=== PATIENT | female | born 1950 | race Hispanic/Latino ===

== ENCOUNTER 2017-06-09 05:45 | Day surgery (SDC) | payer MEDICARE, OTHER ==
[2017-06-09] MEDS ORDERED: PEPCID PO NR (06:00)
[2017-06-09] MEDS ORDERED: NACL 0.9% 1000 ML 1,000 ML IV SCH (06:00)
[2017-06-09] MEDS ORDERED: NACL BACTERIOSTATIC INFILTRATI ONE (06:47)
[2017-06-09] MEDS ORDERED: CLEOCIN 900 MG/50 mL 900 MG/50 ML BAG IV ONE (06:57)
--- NOTE | 2017-06-09 07:12 | Anesthesia Consultation ---
Anesthesia Consult and Med Hx Date of service: 06/09/17 - Airway Anesthetic Teeth Evaluation: Good ROM Head & Neck: Adequate Mental/Hyoid Distance: Adequate Mallampati Class: Class I Intubation Access Assessment: Good - Pulmonary Exam CTA: Yes - Cardiac Exam Cardiac Exam: RRR - Pre-Operative Health Status ASA Pre-Surgery Classification: ASA3 Proposed Anesthetic Plan: General - Pulmonary Hx Smoking: Yes (STOPPED X 10 YRS , 1 1/2PPD X 30 YRS) COPD: Yes (INHALERS PRN) Hx Sleep Apnea: No (DONI PRESCREEN LOW RISK.) - Cardiovascular System Hx Hypertension: Yes - Endocrine Hx Non-Insulin Dependent Diabetes: Yes - Hematic Hx Anemia: Yes (NOT RECENT) - Other Systems Hx Cancer: No
[2017-06-09] MEDS ORDERED: DILAUDID IV PRN (07:13)
--- NOTE | 2017-06-09 07:13 | Anesthesia Day of Surgery ---
Anesthesia Day of Surgery - Day of Surgery Patient Examined: Yes Patient H&P Reviewed: Yes Patient is NPO: Yes
[2017-06-09] MEDS ORDERED: XYLOCAINE MPF 2% ONE (07:17)
[2017-06-09] MEDS ORDERED: DIPRIVAN 10 MG/ML IV ONE (07:18)
[2017-06-09] MEDS ORDERED: ZOFRAN IV PRN (07:30)
[2017-06-09] MEDS ORDERED: PERCOCET 5/325 PO PRN (08:00)
[2017-06-09] MEDS ORDERED: DECADRON ONE (08:46)
[2017-06-09] MEDS ORDERED: ZOFRAN ONE (08:46)
[2017-06-09] MEDS ORDERED: MARCAINE 0.25% INFILTRATI ONE ×3 (08:53→09:15)
[2017-06-09] MEDS ORDERED: NEO SYNEPHRINE/NS Syringe(OR USE) IV ONE (09:00)
[2017-06-09 10:59] VITALS: BP 138/72
--- NOTE | 2017-06-09 11:21 | Post Anesthesia Evaluation ---
- Post Anesthesia Evaluation Patient Participated: Yes Airway Patent: Yes Stable Respiratory Function: Yes Nausea/Vomiting: No Temp > 96.8F: Yes Pain Manageable: Yes Adequeate Hydration: Yes Anesthesia Complications: No
--- NOTE | 2017-06-09 11:33 | Operative Report ---
A 67-year-old female. PREOPERATIVE DIAGNOSIS: [id number]-umygld carpal tunnel syndrome, right wrist, hand region. POSTOPERATIVE DIAGNOSIS: [id number]-wnuxlo carpal tunnel syndrome, right wrist, hand region. PROCEDURE PERFORMED: Mini-open carpal tunnel release, right side. BLOOD LOSS: Minimal. SURGEON: Sandeep Felipe M.D. [employer] R[employer]ER: Otilio Mcgee, operative tech. ANESTHESIA: General, LMA as per Dr. Viki Page. COMPLICATIONS: None. BRIEF HISTORY: The patient is a 67-year-old lady who had chronic and severe carpal tunnel syndrome on the right side effecting her routine activity and quality of life, with significant tingling and numbness on the radial three digits and an EMG nerve study confirmed the test. The patient failed conservative treatment, opted to undergo surgical intervention. Risk and benefit discussed, informed consent obtained, brought to the hospital for the above procedure. DETAILS OF THE OPERATIVE REPORT: The patient was taken to the operating room. After induction of smooth and general endotracheal anesthesia, all the bony prominences carefully padded, placed supine on the operating table. The arm placed on the right side on board. Tourniquet placed on the right upper extremity. Antibiotic given, 900 mg clindamycin for an hour before the procedure. Right wrist and right upper extremity prepped and draped in a sterile fashion. Newby line was drawn out and an incision was made proximal to Newby's line and distal to the wrist crease in line with the radial border of the ring finger. A #15 blade was used to make the incision. Esmarch was used and tourniquet inflated to 15 mmHg. Incision was made as described above. Then, tenotomy scissors were used to carry the dissection deep. Palmar fascia was identified and incised. Once this was incised, retractors were placed on the medial and lateral sides and fat pad was retracted. Following this, the flexor retinaculum was identified and new deep knife #15 blade was used to make a salazar into the flexor retinaculum. Once this was achieved, a [place] was placed underneath the proximal and distal extent and tenotomy scissors were used to transect the flexor retinaculum. Complete release was performed from its distal extent to all the way to the proximal extent to the distal forearm fascia. We could see the reviving nerve with median artery to the median nerve could be easily visualized until the complete release was performed. There were no adhesions or rotator synovitis noticed. Thorough washing was done with bulb syringe with normal saline and a closure was commenced with 3-0 nylon interrupted sutures in a horizontal mattress fashion. No active bleeder as such. A 0.25 mL Marcaine plain injected, 3 cc into the incision area. Dressing was done with Xeroform, 4 x 4s, ABD, cast padding, and an Leobardo wrap. A splint was applied. The patient had good vascularity after the tourniquet was deflated and the fingers and good capillary refill in all the digits. The patient was transferred to the recovery room in stable condition. Sponge and needle count was correct. JOB# [id number] OG/TEA
== END 2017-06-09 11:11 | disposition home or self-care (01) ==
LOC: OR 05:45
PROVIDERS: ATTEND Orthopaedic Surgery
DX: G56.01 Carpal tunnel syndrome, right upper limb (principal); I10 Essential (primary) hypertension; E11.9 Type 2 diabetes mellitus without complications; F17.210 Nicotine dependence, cigarettes, uncomplicated; J44.9 Chronic obstructive pulmonary disease, unspecified; Z88.0 Allergy status to penicillin; Z88.8 Allergy status to other drugs, medicaments and biological substances
CPT/HCPCS: 36415; 64721; 82962; 84132; J1100; J1170; J2370; J2405; J2704; J7030